=== PATIENT | female | born 1990 | race African-American/Black ===

== ENCOUNTER 2017-03-18 11:32 | Emergency (ER) | payer MEDICAID ==
[~2017-03-18] VITALS: Ht 152.4 cm; Wt 108.4 kg
[2017-03-18 11:43] VITALS: BP 134/73; PULSE 82; RESP 18; TEMP 98.3; O2SAT 98
--- NOTE | 2017-03-18 12:34 | NUR ---
Patient placed in bed 7 to gown for evaluation.
--- NOTE | 2017-03-18 12:36 | NUR ---
Pt states having pain from a root canal procedure since 03/14/17. Pt states pain is 7/10 in back upper L tooth. [place] mucosa, no drainage or bleeding present. pt states taking motrin and tylenol with no pain decrease. No other complaints noted.
--- NOTE | 2017-03-18 12:37 | NUR ---
ER Dr. Huerta at bedside examining patient.
[2017-03-18 12:48] VITALS: BP 130/74; PULSE 80; RESP 16; TEMP 98.5; O2SAT 99
--- NOTE | 2017-03-18 12:48 | NUR ---
Patient given written and verbal discharge instructions and verbalizes understanding. ER MD discussed with patient the results and treatment provided. Patient in stable condition. ID arm band removed. Rx of nORCO given. Patient educated on pain management and to follow up with PMD. Opportunity for questions provided and answered.
== END 2017-03-18 12:48 | disposition home or self-care (01) ==
LOC: SED 11:32
DX: G89.18 Other acute postprocedural pain (principal); Z88.1 Allergy status to other antibiotic agents; I10 Essential (primary) hypertension
CPT/HCPCS: 99283

== ENCOUNTER 2017-12-17 12:23 | Emergency (ER) | payer MEDICAID ==
[~2017-12-17] VITALS: Ht 152.4 cm; Wt 102.1 kg
[2017-12-17 12:37] VITALS: BP_SYST 142
[2017-12-17 13:50] VITALS: BP_SYST 138
== END 2017-12-17 13:50 | disposition home or self-care (01) ==
LOC: SED 12:23
DX: S90.121A Contusion of right lesser toe(s) without damage to nail, initial encounter (principal); R03.0 Elevated blood-pressure reading, without diagnosis of hypertension; I10 Essential (primary) hypertension; E66.9 Obesity, unspecified; Z68.41 Body mass index [BMI] 40.0-44.9, adult; Z88.1 Allergy status to other antibiotic agents; Z88.8 Allergy status to other drugs, medicaments and biological substances; W18.40XA Slipping, tripping and stumbling without falling, unspecified, initial encounter; Y93.01 Activity, walking, marching and hiking; Y92.89 Other specified places as the place of occurrence of the external cause; Y99.8 Other external cause status
CPT/HCPCS: 99284

== ENCOUNTER 2018-02-15 12:41 | Emergency (ER) | payer MEDICAID ==
[~2018-02-15] VITALS: Ht 152.4 cm; Wt 102.1 kg
[2018-02-15 12:56] VITALS: BP_SYST 153
[2018-02-15 13:35] VITALS: BP_SYST 153
== END 2018-02-15 13:35 | disposition home or self-care (01) ==
LOC: SED 12:41
DX: K08.89 Other specified disorders of teeth and supporting structures (principal); I10 Essential (primary) hypertension; F31.9 Bipolar disorder, unspecified; Z88.1 Allergy status to other antibiotic agents; Z88.8 Allergy status to other drugs, medicaments and biological substances
CPT/HCPCS: 99283

== ENCOUNTER 2018-07-18 15:36 | Emergency (ER) | payer MEDICAID ==
[~2018-07-18] VITALS: Ht 152.4 cm; Wt 102.1 kg
[2018-07-18 15:43] VITALS: BP_SYST 163
[2018-07-18 16:33] VITALS: BP_SYST 152
== END 2018-07-18 16:32 | disposition home or self-care (01) ==
LOC: SED 15:36
DX: F31.9 Bipolar disorder, unspecified (principal); I10 Essential (primary) hypertension; Q96.9 Turner's syndrome, unspecified; Z88.1 Allergy status to other antibiotic agents; Z76.0 Encounter for issue of repeat prescription
CPT/HCPCS: 99283

== ENCOUNTER 2018-07-30 10:24 | Emergency (ER) | payer MEDICAID ==
[~2018-07-30] VITALS: Ht 152.4 cm; Wt 102.1 kg
--- NOTE | 2018-07-30 10:30 | NUR ---
Pt placed to ER bed 04. Pt c/o left upper molar pain, states went to dentist on Saturday, awaiting appointment for oral surgeon. Swelling noted to gum line, no drainage or bleeding noted.
[2018-07-30 10:35] VITALS: BP_SYST 136
--- NOTE | 2018-07-30 10:35 | NUR ---
Dr. Constantino at bedside.
[2018-07-30 10:55] VITALS: BP_SYST 130
--- NOTE | 2018-07-30 10:55 | NUR ---
Patient given written and verbal discharge instructions and verbalizes understanding. ER MD discussed with patient the results and treatment provided. Patient in stable condition. ID arm band removed. Rx of Tramadol given. Patient educated on pain management and to follow up with PMD. Pain Scale 3/10. Opportunity for questions provided and answered. Medication side effect fact sheet provided.
== END 2018-07-30 10:55 | disposition home or self-care (01) ==
LOC: SED 10:24
DX: K02.9 Dental caries, unspecified (principal); F11.20 Opioid dependence, uncomplicated; I10 Essential (primary) hypertension; F31.9 Bipolar disorder, unspecified; Z88.1 Allergy status to other antibiotic agents; Z88.8 Allergy status to other drugs, medicaments and biological substances
CPT/HCPCS: 99283

== ENCOUNTER 2018-08-13 16:13 | Emergency (ER) | payer MEDICAID ==
[~2018-08-13] VITALS: Ht 152.4 cm; Wt 102.1 kg
[2018-08-13 16:18] VITALS: BP_SYST 158
[2018-08-13 16:55] VITALS: BP_SYST 149
== END 2018-08-13 16:55 | disposition home or self-care (01) ==
LOC: SED 16:13
DX: Z76.0 Encounter for issue of repeat prescription (principal); I10 Essential (primary) hypertension; F31.9 Bipolar disorder, unspecified; Z98.890 Other specified postprocedural states; Z88.1 Allergy status to other antibiotic agents
CPT/HCPCS: 99283

== ENCOUNTER 2019-05-04 15:06 | Emergency (ER) | payer MEDICAID ==
[~2019-05-04] VITALS: Ht 152.4 cm; Wt 102.1 kg
[2019-05-04 15:21] VITALS: BP_SYST 155
[2019-05-04 15:45] LABS: BASOPHILS # (AUTO) 0.1 K/uL (0.0-0.2); BASOPHILS % (AUTO) 0.9 % (0.0-2.0); EOSINOPHILS # (AUTO) 0.1 K/uL (0.0-0.4); EOSINOPHILS % (AUTO) 0.7 % (0.0-4.0); HEMATOCRIT 38.6 % (36-48); HEMOGLOBIN 12.9 g/dL (12.0-16.0); LYMPHOCYTES # (AUTO) 2.1 K/uL (1.0-5.5); LYMPHOCYTES % (AUTO) 21.9 % (20.5-51.5); MEAN CORPUSCULAR HEMOGLOBIN 27 pg (27-31); MEAN CORPUSCULAR HGB CONC 33 % (32-36); MEAN CORPUSCULAR VOLUME 81 fL (79.0-98.0); MONOCYTES # (AUTO) 0.5 K/uL (0.0-1.0); MONOCYTES % (AUTO) 4.9 % (1.7-9.3); NEUTROPHILS # (AUTO) 6.9 K/uL (1.8-7.7); NEUTROPHILS % (AUTO) 71.6 % (40.0-70.0); PLATELET COUNT (AUTO) 367 K/uL (130-430); RED BLOOD CELL COUNT(AUTO) 4.76 MIL/uL (4.2-6.2); RED CELL DISTRIBUTION WIDTH 15.6 % (9.0-15.0); WHITE BLOOD COUNT (AUTO) 9.6 K/uL (4.8-10.8)
[2019-05-04 16:03] LABS: CALCIUM 9.3 mg/dL (8.4-11.0); CREATININE 0.86 mg/dL (0.55-1.30); POTASSIUM 4.2 mmol/L (3.5-5.1)
[2019-05-04 16:08] LABS: ALBUMIN 3.5 g/dL (3.4-4.8); TOTAL BILIRUBIN 0.2 mg/dL (0.0-1.0)
[2019-05-04 16:11] LABS: INR 0.9 (0.8-1.2); PROTHROMBIN TIME 9.3 SECS (9.5-12.5)
[2019-05-04 17:34] LABS: BARBITURATE, URINE NEGATIVE (NEG <=200); BENZODIAZEPINE, URINE NEGATIVE (NEG <=150); CANNABINOID, URINE NEGATIVE (NEG <=50); COCAINE, URINE NEGATIVE (NEG <=150); METHAMPHETAMINES SCREEN,URINE NEGATIVE (NEG <=500); OPIATE, URINE POSITIVE (NEG <=100); PHENCYCLIDINE SCREEN,URINE NEGATIVE (NEG <=25); UR TRICYCLIC ANTIDEPRESSANTS POSITIVE (NEG <=300); URINE AMPHETAMINE NEGATIVE (NEG <=500); URINE METHADONE NEGATIVE (NEG <=200); URINE OXYCODONE SCREEN NEGATIVE (NEG <=100); URINE PROPOXYPHENE SCREEN NEGATIVE (NEG <=300)
[2019-05-04 18:18] VITALS: BP_SYST 140
== END 2019-05-04 18:18 | disposition home or self-care (01) ==
LOC: SED 15:06
DX: M26.602 Left temporomandibular joint disorder, unspecified (principal); N12 Tubulo-interstitial nephritis, not specified as acute or chronic; I10 Essential (primary) hypertension; F31.9 Bipolar disorder, unspecified; Z88.1 Allergy status to other antibiotic agents; Z88.8 Allergy status to other drugs, medicaments and biological substances
CPT/HCPCS: 36415; 70330-TC; 80053; 80307; 81002; 81025; 82150-TC; 83690-TC; 84703; 85025; 85610-TC; 85730-TC; 99284